=== PATIENT | male | born 1985 ===

== ENCOUNTER 2017-07-30 07:05 | Day surgery (SDC) | payer BC ==
[2017-07-25 10:30] VITALS: BMI 25.9
[2017-07-30] MEDS ORDERED: Propofol 10 mg/ml Inj (20 ML) ONE ×2 (09:25→09:54)
[2017-07-30] MEDS ORDERED: Sodium Chloride 0.9% 1,000 ML IV SCH (09:30)
[2017-07-30 10:30] VITALS: PULSE 67; O2SAT 100
[2017-07-30 10:48] VITALS: BP 113/71; RESP 16; TEMP 97.5
== END 2017-07-30 11:01 | disposition home or self-care (01) ==
LOC: ENDO 07:05
PROVIDERS: ATTEND Internal Medicine
DX: K56.609 Unspecified intestinal obstruction, unspecified as to partial versus complete obstruction (principal); R14.0 Abdominal distension (gaseous); K29.50 Unspecified chronic gastritis without bleeding; K44.9 Diaphragmatic hernia without obstruction or gangrene; K63.5 Polyp of colon; K64.8 Other hemorrhoids
CPT/HCPCS: 43239; 45381; 45385; 88305; 88342; J2704; J7030; J7040